=== PATIENT | male | born 1985 | race Caucasian/White ===

== ENCOUNTER 2020-02-02 11:06 | Outpatient (CLI) | payer OTHER ==
--- NOTE | 2020-02-02 13:12 | MRI ---
EXAM: MRI Cervical Spine WO Con PROVIDED CLINICAL HISTORY: Right shoulder pain COMPARISON: None FINDINGS: Cervical alignment appears normal. Vertebral body heights appear preserved. No focal concerning regio nal marrow signal abnormality is evident. The visualized posterior fossa, cervicomedullary junction and cervical spinal cord demonstrate normal signal and morphology. At C2-3, there is mild bilateral facet arthrosis without significant central canal or foraminal narro wing apparent. At C3-4, there is bilateral uncinate process hypertrophy with mild bilateral foraminal narrowing. The re is no significant central canal stenosis. At C4-5, there is bilateral uncinate process hypertrophy and a mild broad disc bulge. There is no sig nificant central canal stenosis apparent. There is mild left foraminal narrowing. At C5-6, there is a broad-based disc osteophyte complex and bilateral uncinate process hypertrophy. T here is mild right and moderate left foraminal narrowing. There is effacement of the ventral subarachnoid space without cord contact or deformity. At C6-7, there is a mild broad disc bulge and bilateral uncinate process hypertrophy. There is mild b ilateral foraminal narrowing. No significant central canal stenosis apparent. At C7-T1, there is no significant central canal or foraminal narrowing apparent. IMPRESSION: Cervical degenerative changes producing canal and foraminal narrowing as described.
== END 2020-02-02 11:07 | disposition home or self-care (01) ==
LOC: SCSMRI 11:06
PROVIDERS: ATTEND Orthopaedic Surgery
DX: M25.511 Pain in right shoulder (principal); M47.812 Spondylosis without myelopathy or radiculopathy, cervical region; M48.02 Spinal stenosis, cervical region
CPT/HCPCS: 72141